=== PATIENT | female | born 1995 ===

== ENCOUNTER 2016-11-30 09:06 | Emergency (ER) | payer OTHER ==
[2016-11-30 09:20] VITALS: BP 105/69
--- NOTE | 2016-11-30 09:27 | UC ---
Throat Pain/Nasal Donovan HPI - HPI Summary HPI Summary: 8 days of worsening sinus pain and nasal congestion, no also has purulent drainage from right eye with erythema (stopped using contact lens before sx started) - History of Current Complaint Chief Complaint: UCGeneralIllness Stated Complaint: SINUS AND EYE ISSUE Time Seen by Provider: 11/30/16 09:21 Hx Obtained From: Patient Hx Last Menstrual Period: 11/04/16 ?: No Onset/Duration: Sudden Onset, Lasting Weeks - 8-10, Still Present, Worse Since - past 2 Severity: Moderate Pain Intensity: 6 Pain Scale Used: 0-10 Numeric Cough: None Associated Signs & Symptoms: Positive: Sinus Discomfort, Nasal Discharge - Allergies/Home Medications Allergies/Adverse Reactions: Allergies Allergy/AdvReac Type Severity Reaction Status Date / Time No Known Allergies Allergy Verified 01/08/14 13:30 PMH/Surg Hx/FS Hx/Imm Hx Previously Healthy: No Respiratory History Of: Reports: Asthma - Surgical History Surgical History: None - Family History Known Family History: Positive: None Family History: denies cardiovascular issues in family lineage - Social History Occupation: Student Lives: With Family Alcohol Use: Weekly Substance Use Type: None Smoking Status (MU): Never Smoked Tobacco Have You Smoked in the Last Year: No Review of Systems Constitutional: Negative Skin: Rash Eyes: Eye Redness ENT: Sore Throat, Nasal Discharge Respiratory: Cough Cardiovascular: Negative Gastrointestinal: Negative Genitourinary: Negative Motor: Negative Neurovascular: Negative Musculoskeletal: Negative Neurological: Negative Psychological: Negative All Other Systems Reviewed And Are Negative: Yes Physical Exam Triage Information Reviewed: Yes Appearance: No Pain Distress, Well-Nourished, Ill-Appearing - mild Vital Signs: Initial Vital Signs Temp 97.7 F 11/30/16 09:14 Pulse 82 11/30/16 09:14 Resp 16 11/30/16 09:14 BP 105/69 11/30/16 09:14 Pulse Ox 100 11/30/16 09:14 Vital Signs Reviewed: Yes Eye Exam: Other Eyes: Positive: Conjunctiva Clear - left, Conjunctiva Inflamed - right, Discharge - right ENT Exam: Normal ENT: Positive: Normal ENT inspection, Hearing grossly normal, Pharynx normal, Nasal congestion, Nasal drainage, TMs normal. Negative: Tonsillar swelling, Tonsillar exudate, Trismus, Muffled/hoarse voice Dental Exam: Normal Neck exam: Normal Neck: Positive: Supple, Nontender, No Lymphadenopathy Respiratory Exam: Normal Respiratory: Positive: Chest non-tender, Lungs clear, Normal breath sounds, No respiratory distress, No accessory muscle use Cardiovascular Exam: Normal Cardiovascular: Positive: RRR, No Murmur, Pulses Normal, Brisk Capillary Refill Musculoskeletal Exam: Normal Musculoskeletal: Positive: Strength Intact, ROM Intact, No Edema Neurological Exam: Normal Neurological: Positive: Alert, Muscle Tone Normal Psychological Exam: Normal Skin Exam: Normal Throat Pain/Nasal Course/Dx - Course Assessment/Plan: flonase, cipro eye drops, augmentin, mucinex, tylenol, ibuprofen for pain, increase fluids, follow with [facility] or return as need. No contact lens use untill all symptoms and eye drop rx has been completed - Differential Dx/Diagnosis Differential Diagnosis/HQI/PQRI: Pharyngitis, Sinusitis, URI Provider Diagnoses: Acute sinusitis, OD conjuctivitis Discharge - Discharge Plan Condition: Stable Disposition: HOME Prescriptions: Amoxicillin/Clavulanate TAB* [Augmentin TAB 875*] 875 mg PO BID #20 tab Ciprofloxacin 0.3% OPTH.MINGO* [Cipro 0.3% Opth*] 1 drop RIGHT EYE Q2H #1 btl Fluticasone NASAL SPRAY 50MCG* [Flonase NASAL SPRAY 50MCG*] 2 spray BOTH NARES DAILY #1 btl Patient Education Materials: Sinusitis (ED), How to Use Eye Drops (ED), Conjunctivitis (ED), How to Use Nasal [place] (ED) Additional Instructions: Follow with [facility] in 5 days or return as needed. Follow immediately if right eye worsens in any way---no contacts until finished with eye drops and sye symptoms have resolved
== END 2016-11-30 09:43 | disposition home or self-care (01) ==
LOC: UCEAST 09:06
DX: J01.90 Acute sinusitis, unspecified (principal); H10.31 Unspecified acute conjunctivitis, right eye
CPT/HCPCS: 99212; G0463